=== PATIENT | male | born 1995 | race Caucasian/White ===

== ENCOUNTER 2019-08-17 19:30 | Emergency (ER) | payer SELFPAY ==
[2019-08-17] MEDS ORDERED: Ibuprofen 800 MG Tab PO ONE (19:46)
[2019-08-17] MEDS ORDERED: Acetaminophen 500 MG Tab PO ONE (19:47)
--- NOTE | 2019-08-17 20:36 | CR ---
Right knee: AP, lateral and sunrise patellar views of the right knee were obtained. Comparison: No previous knee exam. Medial and lateral joint compartments are maintained in height. No joint effusion is seen. No fracture or other bony abnormality is identified. Impression: 1. No abnormality is appreciated on right knee exam. Diagnostic code #1 Study was dictated in Mountain Standard Time
--- NOTE | 2019-08-17 20:45 | EDM.PDOC ---
ED HPI GENERAL MEDICAL PROBLEM - General Chief Complaint: Lower Extremity Injury/Pain Stated Complaint: INJURY Time Seen by Provider: 08/17/19 19:41 - History of Present Illness INITIAL COMMENTS - FREE TEXT/NARRATIVE: HPI 24-year-old male presents for evaluation of sudden onset pain on the distal, medial head of his quadriceps that began when he landed from a jump while playing basketball, patient notes normal sensation in his right foot, denies further injuries. 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 ROS with no recent constitutional symptoms. Exam Gen: Pleasant, nontoxic-appearing, resting comfortably. HEENT: NC, AT, PEERL, EOMI. Resp: Unlabored respirations with a normal work of breathing. Card: Extremities warm and well perfused. GI: Non-distended. : Deferred MSK: right knee with full functional range of motion, no tenderness to palpation over the patella, fibular head, or joint line. No MCL or LCL tenderness to palpation, negative Isabelle and posterior drawer test. Tenderness palpation on the distal medial head of the quadriceps, no further tenderness to palpation on the quadriceps or patellar tendon, both tendons intact on knee extension. No swelling, ecchymosis or effusion. Calf without visible or palpable trauma, muscle compartments soft and non-tender to palpation. 2+ DP pulse. All toes warm and well perfused, patient able to flex and extend ankle and movement with full functional JENY him. Neuro: alert and oriented 3, no facial asymmetry, vision and hearing WNL. Heme/Lymph: Deferred Skin: Normal color with no visible lesions (other than noted above). Psych: Mood and affect appropriate. XR R knee: no abnormalities appreciated on right knee exam. MDM Previous chart, nursing note, and vitals reviewed. A: 24-year-old male presents for evaluation of sudden onset pain on the distal, medial head of his quadriceps that began when he landed from a jump while playing basketball, patient notes normal sensation in his right foot, denies further injuries. DDx & Evaluation: * CMS intact, no evidence of clinically significant meniscal, tenderness, or ligamentous injury. XR without evidence of fracture, patient given ibuprofen and acetaminophen, able to ambulate with mild discomfort. As such, consider occult tibial plateau fracture to be effectively excluded. * 20:42 - repeat evaluation patient resting comfortably, patient able to ambulate with mild discomfort. Reviewed need for follow-up. Given discomfort with ambulation crutches provided. Impression: muscle strain. right knee Pain Score (Numeric/FACES): 8 - Related Data Allergies Allergy/AdvReac Type Severity Reaction Status Date / Time No Known Allergies Allergy Verified 08/17/19 19:48 Home Meds: Home Meds . [No Known Home Meds] 08/17/19 [History] Social & Family History - Family History Family Medical History: Noncontributory - Tobacco Use Smoking Status *Q: Never Smoker - Recreational Drug Use Recreational Drug Use: No Review of Systems - Review of Systems Review Of Systems: See Below ED EXAM, GENERAL - Physical Exam Exam: See Below Course - Vital Signs Last Recorded V/S: Last Vital Signs Temp 35.5 C 08/17/19 19:48 Pulse 91 08/17/19 19:48 Resp 20 08/17/19 19:48 BP 112/66 08/17/19 19:48 Pulse Ox 99 08/17/19 19:48 - Orders/Labs/Meds Meds: Medications Discontinued Medications Generic Name Dose Route Start Last Admin Trade Name Kannan PRN Reason Stop Dose Admin Acetaminophen 1,000 mg 08/17/19 19:47 08/17/19 20:11 Tylenol Extra Strength PO 08/17/19 19:48 1,000 mg ONETIME ONE Administration Ibuprofen 800 mg 08/17/19 19:46 08/17/19 20:11 Motrin PO 08/17/19 19:47 800 mg ONETIME ONE Administration Departure - Departure Time of Disposition: 20:45 Disposition: Home, Self-Care 01 Clinical Impression: Muscle strain - Discharge Information Referrals: PCP,None [Primary Care Provider] - Additional Instructions: You were in seen in the [facility] Emergency Department for evaluation of injuries to your right knee. You are tentatively believed to have a strain of your quadriceps. As we discussed, there is a possibility of other injuries (subclinical ligamentous or meniscal injuries), you may take ibuprofen and acetaminophen instructed below for treatment of pain, you may use the provided crutches as needed for the next 3-4 days and should follow up with a primary care physician for repeat evaluation and further care as appropriate. Please read and follow all of the instructions below. When calling for follow-up care, please make the office aware that this follow- up is from your recent emergency room visit. If for any reason you are refused follow-up, please contact the [facility] Emergency Department at and asked to speak to the emergency department charge nurse. Your care today was limited to identifying and treating emergent medical problems only. Many people have subtle differences in their test results that require follow up with their outpatient physician(s) to correctly determine if this represents a normal variation or concerning abnormality with respect to your specific health. The care given to you today was limited to identifying and treating emergent medical problems - you need to request a copy of all of your medical records from today's visit and follow up with your outpatient physician(s) to review both today's visit and your overall health. If you have any new symptoms or if you are at all concerned about your health please return immediately to the emergency department. You make take over the counter Acetaminophen (Tylenol) and Ibuprofen (Motrin or Aleve) as directed below for relief of pain. * Take 600 mg of ibuprofen (three 200 mg tablets) with a glass of water every 6- 8 hours as needed for pain or fever. Do not take if you have ulcers, GI bleeding , are , or are allergic to ibuprofen. * Take 1,000 mg of acetaminophen (two 500 mg tablets) with a glass of water every 6-8 hours as needed for pain. Do not take if you are allergic to acetaminophen. If you have liver disease, please reduce your dose to a maximum of 2,000 mg per day. * You can take these medications at the same time or on separate schedules. * Do not take for more than 10 days. * Do not take with alcohol or other acetaminophen containing medications. * This medication may cause a mildly upset stomach, if so take it with a small snack. Stop taking it if you have persistent abdominal pain, heartburn, or any stomach pain. Do not take this medication if you have known ulcers. * Please read the warnings at the end of this document regarding these medications. IBUPROFEN WARNING: This drug may infrequently cause serious (rarely fatal) bleeding from the stomach or intestines. Also, related drugs rarely have caused blood clots to form, resulting in heart attacks and strokes. This medication might also rarely cause similar problems. Talk to your doctor or pharmacist about the benefits and risks of treatment, as well as other possible medication choices. If you notice any of the following rare but very serious side effects, stop taking ibuprofen and seek immediate medical attention: black stools, persistent stomach/abdominal pain, vomit that looks like coffee grounds, chest pain, weakness on one side of the body, sudden vision changes, slurred speech. IBUPROFEN SIDE EFFECTS: Upset stomach, nausea, vomiting, heartburn, headache, diarrhea, constipation, drowsiness, and dizziness may occur. If any of these effects persist or worsen, notify your doctor or pharmacist promptly. If your doctor has directed you to use this medication, remember that he or she has judged that the benefit to you is greater than the risk of side effects. Many people using this medication do not have serious side effects. Tell your doctor immediately if any of these serious side effects occur: stomach pain, swelling of the hands or feet, sudden or unexplained weight gain, ringing in the ears ( tinnitus). Tell your doctor immediately if any of these unlikely but serious side effects occur: vision changes, rapid or pounding heartbeat, easy bruising or bleeding, difficult/painful swallowing. Tell your doctor immediately if any of these highly unlikely but very serious side effects occur: change in amount of urine, severe headache, very stiff neck, mental/mood changes, persistent sore throat or fever. This drug may rarely cause serious (possibly fatal) liver disease. If you notice any of the following highly unlikely but very serious side effects, stop taking ibuprofen and consult your doctor or pharmacist immediately: yellowing eyes and skin, dark urine, unusual/extreme tiredness. An allergic reaction to this drug is unlikely, but seek immediate medical attention if it occurs. Symptoms of an allergic reaction include: rash, itching/ swelling (especially of the face/tongue/throat), severe dizziness, trouble breathing. This is not a complete list of possible side effects. ACETAMINOPHEN SIDE EFFECTS: This drug usually has no side effects. If you do not have liver problems, the maximum dose of acetaminophen for adults is 4 grams per day (4000 milligrams). Taking more than the maximum daily amount may cause serious (possibly fatal) liver damage. Get medical help right away if you have any of the following symptoms of liver damage: persistent nausea/vomiting, extreme tiredness, stomach/abdominal pain, yellowing eyes/skin, dark urine. If you have liver problems, consult your doctor or pharmacist for a safe dosage of this medication. A very serious allergic reaction to this drug is rare. However , get medical help right away if you notice any symptoms of a serious allergic reaction, including: rash, itching/swelling (especially of the face/tongue/ throat), severe dizziness, trouble breathing. This is not a complete list of possible side effects. If you notice other effects not listed above, contact your doctor or pharmacist. DRUG INTERACTIONS: Your healthcare professionals (e.g., doctor or pharmacist) may already be aware of any possible drug interactions and may be monitoring you for it. Do not start, stop or change the dosage of any medicine before checking with them first. This drug should not be used with the following medications because very serious interactions may occur: cidofovir, ketorolac. If you are currently using any of these medications listed above, tell your doctor or pharmacist before starting ibuprofen. Before using this medication, tell your doctor or pharmacist of all prescription and nonprescription/herbal products you may use, especially of: anti-platelet drugs (e.g., cilostazol, clopidogrel), oral bisphosphonates (e.g., alendronate), other medications for arthritis (e.g., aspirin, methotrexate), "blood thinners" (e.g., enoxaparin, heparin, warfarin), corticosteroids (e.g., prednisone), cyclosporine, desmopressin, high blood pressure drugs (including HARIS inhibitors such as captopril, angiotensin II receptor antagonists such as losartan, and beta- blockers such as metoprolol), lithium, pemetrexed, "water pills" (diuretics such as furosemide, hydrochlorothiazide, triamterene). Check all prescription and nonprescription medicine labels carefully for other pain/fever drugs ( NSAIDs such as aspirin, celecoxib, naproxen). These drugs are similar to ibuprofen, so taking one of these drugs while also taking ibuprofen may increase your risk of side effects. Consult your doctor or pharmacist for more details. However, if your doctor has prescribed low doses of aspirin to prevent heart attack or stroke (usually at dosages of 81-325 milligrams a day), you should continue to take the aspirin. Daily use of ibuprofen may decrease aspirin 's ability to prevent heart attack/stroke. Talk to your doctor about using a different medication (e.g., acetaminophen) to treat pain/fever. If you must take ibuprofen, talk to your doctor about possibly taking immediate-release aspirin (not enteric-coated) while also taking the ibuprofen dose apart from your aspirin dose. Do not increase your daily dose of aspirin or change the way you take aspirin/other medications without your doctor's approval. This document does not contain all possible interactions. Therefore, before using this product, tell your doctor or pharmacist of all the products you use. Keep a list of all your medications with you, and share the list with your doctor and pharmacist. Crutch Use Instructions Setting Up the Crutches: * Secure the arm pads and hand consulting services manager prior to use. * Tighten all hardware ( ie. screws and wing nuts) at least once per week. * Clean the crutch tips of jewell and dirt to minimize slipping. * Have someone assist you until you master the technique of crutch use. * Remove loose rugs and electrical cords from all potential paths to avoid tripping and falling. * Replace crutch tips if they should wear out. * Be careful on wet indoor surfaces which may be extremely slick. To walk with Crutches: * Put your crutches under your arms and press them against your body. * Make sure to bear your weight on your hands, not under your arms. * Move the crutches ahead of you approximately 12 inches. * Push down on the consulting services manager as you step slightly past the crutches, leading with the GOOD LEG. * Advance the crutches forward approximately 12 inches; then continue. To get up from a seated position: * Hold both crutches on affected side. * Slide to the edge of the chair or seat. * Push down on the arm of the chair on the good side. * Stand up, then put the crutches under your arms. * Press the arm pads into the body. To Sit Down: * Back up to the chair or seat to within 2-3 inches. * Put both crutches in your hand on the affected side, reach backwards for the chair or seat with the other hand. * Lower yourself slowly into the chair, bending at the hips. To go upstairs: * Start close to the bottom step, and push down with your hands. * Step up to the first step, remembering to lead with your GOOD LEG. (Good Leg "UP") * Next, step up to the same step with the other foot, making sure to keep the crutches with your affected limb. To go downstairs: * Start at the edge of the step, keeping your hips beneath you. * Slowly bring the crutches with your affected limb down to the next step. BAD LEG first down the stairs. (Bad Leg "Down") * Be sure to bend at the hips and knees to prevent leaning too far forward, which could cause you to fall. * If handrail is available, place both crutches in hand on unaffected side with rail on affected side. * Advance hand on rail slightly and place crutches on lower stair. * Then advance both legs simultaneously to next stair. Prescriptions: If you are uninsured or have financial difficulties with filling your prescription(s), you may consider using a free pharmacy discount service such as [employer] (Amperion) or [employer] ([employer]). These services allow you to search for a medication on your phone (or computer) and obtain a coupon that usually has a significant discount from the list oliver at a pharmacy. Your physician as well as [facility] does not have a financial relationship with either of these services. You may also wish to speak with your physician to determine if lower cost prescriptions are possible. Obtaining primary care: 1. [facility] provides pediatrics (children), family medicine (children, adults, and some obstetrical care), and internal medicine (adults). Further specialty care is also available. Same day appointments are available. They may be contacted at [phone] and are open Friday through Friday 8 AM to [address] [facility] are located at [facility], [facility] [address] [place] [place] [address]. 2. [facility] offers family medicine, internal medicine, womens health, and further specialty care. [facility] may be contacted at [phone]. [facility] is located at [address] [place], [address]. 3. If you have health insurance, please also contact your insurer for a list of accepting providers under your policy, you may contact these providers for further health care. Occupational health: Work related injuries may consider following up with [facility], . Occupational health services are located at [address] [place] [address] and are open Friday through Friday from 7: 30 am to 5:00 pm. Obstetrical and Gynecological Care: [facility], , Friday through Friday 8 AM to 5 PM. [address], [place] [address]. Eyecare: If you have an eye injury you should follow up with your services coordinator or with [facility], at [phone] or [phone] , they are located at [address] [place] [address]. Dental Care * Clinton Ernst DDS. [address] [place], [place]. Ph. [phone] * Josr Ernst DDS MS. [address] [facility] [address], [place]. Ph. [phone] * Zac Jim DDS. [address] [place] [address]. Ph. [phone] * Cody Odom DDS. [address] [facility] [address] [place], [place]. Ph. [phone] * Inocencio Dalton DDS PC. [address] [facility] [address] [facility] [address] [place], [place]. Ph. [phone] * Luly Maloney DDS. [address] [place] [address]. Ph. [phone] * [facility]. [address] [place], [place]. Ph. [phone] * [facility]. [address], [place], [place]. Ph. [phone] * [facility] [address] [place] [address]. Ph. [phone] * [facility]. [address] [place] [address] [address] [place], [place]. Ph. [phone] * [facility]. [address] [place], [place]. Ph. [phone] Sepsis Event Note - Evaluation Sepsis Screening Result: No Definite Risk - Focused Exam Vital Signs: Vital Signs Temp Pulse Resp BP Pulse Ox 08/17/19 19:48 35.5 C 91 20 112/66 99 Date Exam was Performed: 08/17/19 Time Exam was Performed: 20:45
== END 2019-08-17 20:45 | disposition home or self-care (01) ==
LOC: MW.ED 19:30
DX: S76.111A Strain of right quadriceps muscle, fascia and tendon, initial encounter (principal); X58.XXXA Exposure to other specified factors, initial encounter; Y93.67 Activity, basketball
CPT/HCPCS: 73562; 99283; A9270; 99282

== ENCOUNTER 2020-11-10 17:43 | Emergency (ER) | payer MEDICAID ==
[2020-11-10] MEDS ORDERED: Diphtheria,Pertussis(Acell),Tetanus Vaccine 0.5 ML Syringe IM ONE (18:18)
--- NOTE | 2020-11-10 18:40 | EDM.PDOC ---
ED HPI GENERAL MEDICAL PROBLEM - General Chief Complaint: Upper Extremity Injury/Pain Stated Complaint: FINGER INJURY Time Seen by Provider: 11/10/20 17:51 Source of Information: Reports: Patient, Family History Limitations: Reports: No Limitations - History of Present Illness INITIAL COMMENTS - FREE TEXT/NARRATIVE: HISTORY AND PHYSICAL: History of present illness: The patient is a 25-year-old male who presents with complaints of right index nail and fingertip laceration. The patient was closing a trailer and putting the pen between the 2 metal catches when he caught his finger between them causing a crush injury. He denies any other injury. Did not do any kind of treatment at home for the wound. Patient did not take anything [id number] prior to coming to the emergency room. Patient denies any fever, chills, headache, change in vision, syncope or near syncope. Denies any chest pain, back pain, shortness of breath or cough. Denies any abdominal pain, nausea, vomiting, diarrhea, constipation or dysuria. Has not noted any blood in urine or stool. Patient has been eating and drinking appropriately. In the emergency room the patient is hemodynamically stable with a blood pressure of 141/79 and a heart rate of 80. He is afebrile with a temperature of 96.9 Review of systems: As per history of present illness and below otherwise all systems reviewed and negative. Past medical history: As per history of present illness and as reviewed below otherwise noncontributory. Surgical history: As per history of present illness and as reviewed below otherwise noncontributory. Social history: See social history for further information Family history: As per history of present illness and as reviewed below otherwise noncontributory. Physical exam: General: Well developed and well nourished. Alert and orientated x 3. Nontoxic in appearance and in no acute distress. Vital signs are stable and have been reviewed by me. Nursing notes were reviewed. HEENT: Atraumatic, normocephalic, pupils equal and reactive bilaterally, negative for conjunctival pallor or scleral icterus, mucous membranes moist, throat clear, neck supple, nontender, trachea midline. No drooling or trismus noted. No meningeal signs. No hot potato voice noted. Lungs: Clear to auscultation bilaterally. No wheezes, rales, or rhonchi. Chest nontender. Normal work of breathing, no accessory muscles used. Heart: S1S2, regular rate and rhythm without overt murmur, gallops, or rubs. No JVD. No peripheral edema Abdomen: Soft, nondistended, nontender. Normoactive bowel sounds. Negative for masses or costovertebral tenderness. Skin: Right index finger nail with 1.2 cm laceration extending to medial finger fold. No active bleeding. CMS intact. Warm & dry. No lesions or rashes noted. Hematologic: No petechiae or purpra. Mucosa appropriate color and normal nail bed color and refill. Extremities: Moves all extremities per self without difficulty or deficits, negative for cords or calf pain. Neurovascular unremarkable. Neuro: Awake, alert, oriented. Cranial nerves II through XII unremarkable. Cerebellum unremarkable. Motor and sensory unremarkable throughout. Exam nonf ocal. Psychiatric: Mood and affect are appropriate. Normal thought process. Answering questions appropriately. Notes: *This patient was seen and evaluated during the 2019 SARS-CoV-2 novel coronaviru s pandemic period. Community viral transmission is ongoing at time of this encounter and the emergency department is operating under pandemic response procedures. DR. Vaughn consulted on case. After examination and discussion the patient is agreeable to approximation of right index finger nail with sutures. Will obtain an x-ray prior to suture due to nature of crush injury. Right index finger x-ray IMPRESSION: Tiny fracture involving the tip of the distal tuft of the distal phalanx of the index finger of the right hand. The right index finger nailbed was approximated with with the use of 3 sutures. The patient tolerated the procedure without difficulty. I educated the patient suture care. The patient is to wear a finger splint for protection of the right index finger until removal of the sutures. Application of finger splint for protection of suture and comfort for 10 days was ordered. I have ordered Keflex 500 for the patient due to I have talked with the patient about today's findings, in addition to providing specific details for plan of care. Reassessment at the time of disposition demonstrates that the patient is in no acute distress. The patient is stable for discharge, counseling was provided and we discussed in great detail signs and symptoms that would prompt them to return to the Emergency Department. Medication, follow up and supportive care measures were reviewed and discussed. Voices understanding and is agreeable to plan of care. Denies any further questions or concerns at this time. Diagnostics:finger x-ray Therapeutics: Lidocaine 1%, finger splint Prescription: Keflex 500 mg twice daily for 10 days Impression: Index finger nail laceration, right index tuft fracture Plan: 1. You were evaluated today on an emergent basis. Your right index finger laceration was repaired with three sutures. Keep the area clean and dry. You can apply bacitracin ointment and a nonstick dressing daily. You can have your sutures removed in 10 days. Wear your splint until suture removal. You will not have to wear it after that. Monitor the wound for sings of infection such as redness, increased swelling, and drainage. I have prescribed Keflex 500 mg twi ce a day for 10 days. You had your first dose in the emergency department. Return to the emergency department to have your sutures removed or go to your primary care. 2. You can alternate Tylenol and ibuprofen as needed for pain and fever management. 3. We encourage you to follow up with your primary care provider and/or recommended specialist in the next few days for re-evaluation and further care/management. 4. If your symptoms should worsen, new symptoms develop or any of the signs and symptoms we discussed should arise please return to the emergency room or call 911 (if needed). Definitive disposition and diagnosis as appropriate pending reevaluation and review of above. R Index Finger Pain Score (Numeric/FACES): 4 - Related Data Allergies Allergy/AdvReac Type Severity Reaction Status Date / Time shellfish derived Allergy Airway Verified 11/10/20 17:53 Tightness Home Meds: Home Meds cephALEXin [Keflex] 500 mg PO BID 10 Days #19 cap 11/10/20 [Rx] Past Medical History Respiratory History: Reports: Asthma - Infectious Disease History Infectious Disease History: Reports: None - Past Surgical History Musculoskeletal Surgical History: Reports: Other (See Below) Other Musculoskeletal Surgeries/Procedures:: R knee Meniscus/ACL repair January 2020 Dermatological Surgical History: Reports: Other (See Below) Social & Family History - Family History Family Medical History: No Pertinent Family History - Tobacco Use Tobacco Use Status *Q: Current Some Day Tobacco User Years of Tobacco use: 3 Packs/Tins Daily: 1 - Caffeine Use Caffeine Use: Reports: Coffee, Energy Drinks - Recreational Drug Use Recreational Drug Use: No Review of Systems - Review of Systems Review Of Systems: Comprehensive ROS is negative, except as noted in HPI. ED EXAM, GENERAL - Physical Exam Exam: See Below (See Dictation) ED TRAUMA EXTREMITY PROCEDURES - Laceration/Wound Repair Right Ventral Digit - 2nd (Index) Lac/Wound Length In cm: 1.2 Appearance: Superficial Distal NVT: Neuro & Vascular Intact, No Tendon Injury Anesthetic Type: Local Local Anesthesia - Lidocaine (Xylocaine): 1% Plain Local Anesthetic Volume: 4cc Skin Prep: Chlorhexidine (Hibiciens) Exploration/Debridement/Repair: Wound Explored, No Foreign Material Found Closed With: Sutures Suture Size: 3-0 # of Sutures: 3 Suture Type: Prolene Course - Vital Signs Last Recorded V/S: Last Vital Signs Temp 96.9 F 11/10/20 17:54 Pulse 80 11/10/20 17:54 Resp 18 11/10/20 17:54 BP 141/79 H 11/10/20 17:54 Pulse Ox 94 L 11/10/20 17:54 - Orders/Labs/Meds Orders: Active Orders 24 hr Category Date Time Status Vaccines to be Administered [RC] PER UNIT ROUTINE Care 11/10/20 18:18 Active DME for Discharge [COMM] Stat Oth 11/10/20 20:05 Ordered Meds: Medications Discontinued Medications Generic Name Dose Route Start Last Admin Trade Name Freq PRN Reason Stop Dose Admin Bacitracin 1 dose 11/10/20 20:05 Bacitracin Oint 1 Gm U/D Packet TOP 11/10/20 20:06 ONETIME ONE Cephalexin 500 mg 11/10/20 20:08 Cephalexin 500 Mg Cap PO 11/10/20 20:09 ONETIME STA Diphtheria/Tetanus/Acell Pertussis 0.5 ml 11/10/20 18:18 11/10/20 20:02 Diphtheria,Pertussis(Acell),Tetanus Vaccine 0.5 Ml Syringe IM 11/10/20 18:19 0.5 ml .ONCE ONE Administration Lidocaine HCl 5 ml 11/10/20 19:30 11/10/20 20:03 Lidocaine 1% 5 Ml Sdv INJECT 11/10/20 19:31 5 ml ONETIME ONE Administration Departure - Departure Time of Disposition: 20:14 Disposition: Home, Self-Care 01 Condition: Good Clinical Impression: Laceration - Discharge Information *PRESCRIPTION DRUG MONITORING PROGRAM REVIEWED*: Not Applicable *COPY OF PRESCRIPTION DRUG MONITORING REPORT IN PATIENT MATTHEW: Not Applicable Prescriptions: cephALEXin [Keflex] 500 mg PO BID 10 Days #19 cap Instructions: Laceration Care, Adult Referrals: Akash Alfaro MD [Primary Care Provider] - Forms: ED Department Discharge Additional Instructions: The following information is given to patients seen in the emergency department who are being discharged to home. This information is to outline your options for follow-up care. We provide all patients seen in our emergency department with a follow-up referral. The need for follow-up, as well as the timing and circumstances, are variable depending upon the specifics of your emergency department visit. If you don't have a primary care physician on staff, we will provide you with a referral. We always advise you to contact your personal physician following an emergency department visit to inform them of the circumstance of the visit and for follow-up with them and/or the need for any referrals to a consulting specialist. The emergency department will also refer you to a specialist when appropriate. This referral assures that you have the opportunity for follow-up care with a specialist. All of these measure are taken in an effort to provide you with optimal care, which includes your follow-up. Under all circumstances we always encourage you to contact your private physician who remains a resource for coordinating your care. When calling for follow-up care, please make the office aware that this follow-up is from your recent emergency room visit. If for any reason you are refused follow-up, please contact the [facility] Emergency Department at and asked to speak to the emergency department charge nurse. [facility] - Primary Care [address] [place] [id number] [address] Plan: 1. You were evaluated today on an emergent basis. Your right index finger laceration was repaired with three sutures. Keep the area clean and dry. You can apply bacitracin ointment and a nonstick dressing daily. You can have your sutures removed in 10 days. Wear your splint until suture removal. You will not have to wear it after that. Monitor the wound for sings of infection such as redness, increased swelling, and drainage. I have prescribed Keflex 500 mg twice a day for 10 days. You had your first dose in the emergency department. Return to the emergency department to have your sutures removed or go to your primary care. 2. You can alternate Tylenol and ibuprofen as needed for pain and fever management. 3. We encourage you to follow up with your primary care provider and/or recommended specialist in the next few days for re-evaluation and further care/management. 4. If your symptoms should worsen, new symptoms develop or any of the signs and symptoms we discussed should arise please return to the emergency room or call 911 (if needed). Sepsis Event Note (ED) - Evaluation Sepsis Screening Result: No Definite Risk - Focused Exam Vital Signs: Vital Signs Temp Pulse Resp BP Pulse Ox 11/10/20 17:54 96.9 F 80 18 141/79 H 94 L - My Orders Last 24 Hours: My Active Orders 11/10/20 18:18 Vaccines to be Administered [RC] PER UNIT ROUTINE 11/10/20 20:05 DME for Discharge [COMM] Stat - Assessment/Plan Last 24 Hours: My Active Orders 11/10/20 18:18 Vaccines to be Administered [RC] PER UNIT ROUTINE 11/10/20 20:05 DME for Discharge [COMM] Stat
--- NOTE | 2020-11-10 18:58 | CR ---
HISTORY: Crush injury. TECHNIQUE: Three views of the index finger of the right hand. COMPARISON: No prior. FINDINGS: There is a tiny fracture involving the tip of the distal tuft of the distal phalanx of the index finger of the right hand. The osseous structures are otherwise intact. No radiopaque foreign body. Joint spaces are maintained. IMPRESSION: Tiny fracture involving the tip of the distal tuft of the distal phalanx of the index finger of the right hand. Dictated by Michael Long MD @ 11/10/2020 6:56:[address] Michael Long @ Nov 10 2020 6:56PM
[2020-11-10] MEDS ORDERED: Bacitracin Oint 1 GM U/D Packet TOP ONE (20:05)
[2020-11-10] MEDS ORDERED: Cephalexin 500 MG Cap PO STA (20:08)
== END 2020-11-10 20:32 | disposition home or self-care (01) ==
LOC: MW.ED 17:43
DX: S62.630A Displaced fracture of distal phalanx of right index finger, initial encounter for closed fracture (principal); J45.909 Unspecified asthma, uncomplicated; Z72.0 Tobacco use; Z91.013 Allergy to seafood; Z23 Encounter for immunization; W23.0XXA Caught, crushed, jammed, or pinched between moving objects, initial encounter
CPT/HCPCS: 12001; 73140; 90471; 90715; 99283; A9270

== ENCOUNTER 2020-11-28 09:50 | Emergency (ER) | payer MEDICAID, OTHER | END 2020-11-28 10:00 | LOC: MW.ED 09:50 | DX: S61.210D Laceration without foreign body of right index finger without damage to nail, subsequent encounter (principal); X58.XXXD Exposure to other specified factors, subsequent encounter | CPT/HCPCS: 99281 ==